=== PATIENT | female | born 1970 | race Asian ===

== ENCOUNTER 2021-11-30 06:41 | Emergency (ER) | payer BC ==
[~2021-11-30] VITALS: Ht 154.9 cm; Wt 49.9 kg
[2021-11-30] MEDS ORDERED: ONDANSETRON ODT4 MG PO (06:47)
== END 2021-11-30 07:10 | disposition home or self-care (01) ==
LOC: ER 06:45
DX: R20.2 Paresthesia of skin (principal); R11.0 Nausea
CPT/HCPCS: 93005; 99282